=== PATIENT | female | born 1935 | race Two or more races ===

== ENCOUNTER 2024-02-08 09:29 | Outpatient (AMB) | payer MEDICARE, SELFPAY ==
--- NOTE | 2024-02-08 09:32 | MHC.PC.OV ---
Vital Signs 02/08/24 09:36 Height 5 ft 1 in Weight 144 lb BMI 27.2 Pulse 90 Pulse Source Pulse Oximeter Pulse Oximetry (%) 97 Oxygen Delivery Method Room Air Intake Visit Reasons: Est Care heart/Kidney Intake Note: Pt is here today for New patient visit discharge follow up. Allergies No Known Allergies Allergy (Verified 02/08/24 09:38) Tobacco use date assessed: 02/08/24 Fall risk assessment: No Falls in past year Last assessed Fall Risk: 02/08/24 Dental Screening Dental Screen Date: 02/08/24 Did you have a dental visit in the last 12 months?: No Did you have a dental problem in the last 6 months where you did not have access to dental care?: No Was dental information given to patient?: Patient declined HPI Est Care heart/Kidney HPI Details Patient presents for new patient visit. She was recently discharged from [facility] for the episode of abdominal pain was diagnosed with acute renal failure. Nae is a 88 year old female with a history hypertension, severe aortic stenosis, stage 3 CKD, and diverticulitis who presents today for followup on hospitalization after an episode of diverticulitis complicated by acute renal failure and to establish care. ? She is a poor historian but presents with her cousin today.? She was discharged from [facility] 1 week ago (01/31) after a 6 day hospital stay for acute renal failure on CKD, in the setting of RPGN, diagnosed on biopsy. Results for full biopsy are still pending. CT had also shown uncomplicated diverticulitis treated with Zosyn. Her hospital course was complicated by unstable hyperkelmia.? She reports being healthy until 6 years ago when she was found unconscious in her home in [place], [place] and was subsequently hospitalized for a coma that lasted for 2 days. It is unclear what the underlying cause was but had shingles at the time. She followed up with aquatics director for CKD for a few years in [place], [place]. Family History:? Sister (79), Mom (78), and first degree cousin (81) due to failure to thrive from dysphagia? Brother from gastric cancer Her appetite has been improving since discharge. Had been eating less with no appetite over the last few months, but post discharge is doing much better. She reports no nausea, vomiting, or difficulty swallowing.? At baseline is very active and used to walk 2 miles a day with her dog and was involved in aerobics at the [facility]. No shortness of breath with activity, although has not been as active as of a few months ago. No SOB at rest. No chest pain.? [facility] Medical History (Updated 02/08/24 @ 16:23 by Daisy Car MD) History of ectopic Surgical History (Updated 02/08/24 @ 09:44 by SO Castro) Hx of appendectomy Family History (Updated 02/08/24 @ 09:46 by SO Castro) Father No problems noted. Mother No problems noted. Sister Diabetes Social History (Updated 02/08/24 @ 16:24 by Daisy Car MD) Household Members Other:: lives with niece, from [place], [place]. Housing: House Patient Tobacco Use Status: Never used Tobacco e-Cigarette/Vaping Use: Never Used service: No Current occupational status: retired Cognitive needs: No Hearing needs: No Vision needs: No Questionnaire PHQ-9 Over the last 2 weeks, how often have you been bothered by any of the following problems? 1. Little interest or pleasure in doing things: not at all 2. Feeling down, depressed, or hopeless: several days 3. Trouble falling or staying asleep, or sleeping too much: not at all 4. Feeling tired or having little energy: several days 5. Poor appetite or overeating: not at all 6. Feeling bad about yourself - or that you are a failure or have let yourself or your family down: not at all 7. Trouble concentrating on things, such as reading the newspaper or watching television: not at all 8. Moving or speaking so slowly that other people could have noticed. Or the opposite - being so fidgety or restless that you have been moving around a lot more than usual: several days 9. Thoughts that you would be better off or of hurting yourself in some way: several days Total score: 4 Depression Screening Interpretation: Negative Depression Screening Done: Yes Source: Developed by Drs. Elian Blanton, Toshia Monge, Hernan Arias and colleagues, with an educational key from [employer]. Thrive Questionnaire Date Thrive assessed: 02/08/24 I am a: Patient What is your living situation today?: I have a steady place to live Within the past 12 months, did the food you bought not last and you didn't have the money to get more?: I choose not to answer this question Within the past 12 months, did you worry whether your food would run out before you got money to buy more?: I choose not to answer this question Do you have trouble paying for medicines?: No Do you have trouble getting transportation to medical appointments?: No Do you have trouble paying your heating and electricity bill?: No Do you have trouble taking care of your child, family member or friend?: No Do you have trouble with day-to-day activities such as bathing, preparing meals, shopping, managing finances, etc.?: I choose not to answer this question Are you currently unemployed and looking for a job?: No Are you interested in more education?: No Please select the resources that you would like help with: Food, Paying for medicine and Care for elder or disabled Currently or been in a relationship where the following occur: Choked GENE Score: 1 AUDIT C Alcohol Use Questionnaire (AUDIT-C) 1. How often do you have a drink containing alcohol?: Never 3. How often do you have six or more drinks on one occasion?: Never Total Score: 0 MALCOLM-7 AMB Questionnaire MALCOLM-7 Date MALCOLM - 7 assessed: 02/08/24 Feeling nervous, anxious, or on edge: 0 = Not at all Not being able to stop or control worryin = Not at all Worrying too much about different things: 0 = Not at all Trouble relaxin = Not at all Being so restless that it is hard to sit still: 0 = Not at all Becoming easily annoyed or irritable: 1 = Several days Feeling afraid as if something awful might happen: 0 = Not at all Total MALCOLM-7 score (0-4 normal; 5-9 mild; 10-14 moderate; 15-21 severe): 1 Source: Developed by Drs. Elian Blanton, Toshia Monge, Hernan Arisa and colleagues, with an educational key from [employer]. Physical exam (Primary Care) Vital Signs: Last Vital Signs Pulse 90 02/08/24 09:36 Pulse Ox 97 02/08/24 09:36 Oxygen Delivery Method Room Air 02/08/24 09:36 BMI result Body Mass Index 27.2 Tobacco/Smoking Status: Tobacco use Status Tobacco use date assessed 02/08/24 02/08/24 09:48 Patient Tobacco Use Status Never used Tobacco 02/08/24 09:48 e-Cigarette/Vaping Use Never Used 02/08/24 09:48 PHQ-9: PHQ-9 Score PHQ-9: Total score 4 02/08/24 09:55 Depression Screening Interpretation: Negative Thrive Assessment: Date of Thrive Assessment Date Thrive assessed 02/08/24 02/08/24 09:55 Currently or been in a relationship where the following occur: Choked Assessment and Plan Assessment & Plan (1) Aortic stenosis, severe: Comment: Echo on 12/2023 showed severely calcified AV. AV area 0.65 cm^2. mean gradient 36 mmHg. EF 60-65%, to fu by [facility] cardiology in 4 months for TAVR Code(s): I35.0 - Nonrheumatic aortic (valve) stenosis Plan: fu with [facility] cardiology in 4 months (2) Anemia: Comment: multifactorial, CKD, Iron deficiency anemia Code(s): D64.9 - Anemia, unspecified Plan: monitor CBC, iron studies, and fu with neprhology (3) Acute renal failure: Comment: hospitalized at [facility] discharged 02/01/24, Code(s): N17.9 - Acute kidney failure, unspecified Plan: fu with [facility] nephrology, continue prednisone and cyclical cyclophosphamide (dose #2 02/09/24) (4) RPGN (rapidly progressive glomerulonephritis): Comment: hospitalized at [facility] discharged 02/01/24, diagnosed on kidney biopsy, started on 60 mg prednisone and a dose of cyclophasphamide for possible lupus nephritis, fu [facility] nephrology on 02/09/24 Code(s): N01.9 - Rapidly progressive nephritic syndrome with unspecified morphologic changes Plan: fu with [facility] nephrology, continue prednisone and cyclical cyclophosphamide (dose #2 02/09/24) (5) Hypertension: Code(s): I10 - Essential (primary) hypertension Plan: continue amlodipine, fu in 1 month Coding Level of Care Code New Pt Level 5 (17615) Diagnoses Aortic stenosis, severe I35.0 Anemia D64.9 Acute renal failure N17.9 RPGN (rapidly progressive glomerulonephritis) N01.9 Hypertension I10
[2024-02-08 09:36] VITALS: PULSE 90; O2SAT 97; BMI 27.2
== END 2024-02-08 10:57 | disposition home or self-care (01) ==
PROVIDERS: Visit Provider Internal Medicine
DX: I35.0 Nonrheumatic aortic (valve) stenosis (principal); D64.9 Anemia, unspecified; N17.9 Acute kidney failure, unspecified; N01.9 Rapidly progressive nephritic syndrome with unspecified morphologic changes; I10 Essential (primary) hypertension
CPT/HCPCS: 99204